=== PATIENT | female | born 1940 | race Caucasian/White ===

== ENCOUNTER → 2016-06-18 | Outpatient (CLI) | payer MEDICARE, BC ==
[~2016-06-18] MED LIST: ASPIRIN 81M81 MG/TA2 PO; EPA1000 MG PO; INFANTS AQU400 IU/ML; MULTIPLE VITAMI1 CAP PO; NITROSTAT0.4 MG/TAB SL; TOPROL XL 25MG25 MG PO; VITAMIN C500 MG PO; VITAMIN D5000 IU PO; VITAMIN E100 I3
== END ==
LOC: MC.RAD 10:55
DX: Z12.31 Encounter for screening mammogram for malignant neoplasm of breast (principal)

== ENCOUNTER 2017-06-19 14:40 | Emergency (ER) | payer MEDICARE, BC ==
[~2017-06-19] VITALS: Ht 165.1 cm; Wt 68.2 kg
[~2017-06-19 14:40] MED LIST changes: +NATURAL E400 IU PO; -VITAMIN E100 I3
[2017-06-19 14:46] VITALS: TEMP 101.2
[2017-06-19 15:32] LABS: BASO # 0.1 (0.0-0.2); BASO % 0.8 % (0.0-2.0); EOS % 0.1 % (0-4.0); GRAN # 6.6 (1.4-6.5); GRAN % 82.2 % (42.2-75.2); HEMATOCRIT 37.7 % (37.0-47.0); HEMOGLOBIN 12.7 g/dl (12.5-16.0); LYMPH # 0.7 (1.2-3.4); MEAN CELL VOLUME 94 fl (80.0-100.0); MEAN CORPUSCULAR HEMOGLOBIN 32 pg (27.0-31.0); MEAN CORPUSCULAR HGB CONC 34 g/dl (33.0-37.0); MEAN PLATELET VOLUME 9.2 fl (7.4-10.4); MONO # 0.6 (0.1-0.6); MONO % 7.5 % (1.7-9.3); PLATELET COUNT 243 K/mm3 (130-400); RED BLOOD COUNT 4.01 M/mm3 (4.10-5.30)
[2017-06-19 15:43] LABS: ALBUMIN 4.2 gm/dL (3.5-5.0); BILIRUBIN,TOTAL 0.3 mg/dL (0.0-1.0); C-REACTIVE PROTEIN 2.2 mg/dL (0.0-0.9); CALCIUM 9.1 mg/dL (8.4-10.2); CREATININE, serum 0.98 mg/dL (0.52-1.25); POTASSIUM 3.9 mmol/L (3.4-5.0); TOTAL PROTEIN 7.7 gm/dL (6.4-8.2)
[2017-06-19 16:21] LABS: COLLECTION METHOD CLEAN CATCH
[2017-06-19 16:36] LABS: BUDDING YEAST Present /hpf; MUCOUS Present /lpf; PH 6 (5-8); URINE APPEARANCE Cloudy; URINE BACTERIA Rare /hpf; URINE BILIRUBIN Negative (NEGATIVE); URINE BLOOD 2+ (NEGATIVE); URINE COLOR Yellow; URINE GLUCOSE Negative (NEGATIVE); URINE KETONE Negative (NEGATIVE); URINE LEUKOCYTE ESTERASE 3+ (NEGATIVE); URINE NITRATE Negative (NEGATIVE); URINE PROTEIN(semi-quant) Negative (NEGATIVE); URINE RBC 20-50 /hpf; URINE UROBILINOGEN Negative (NEGATIVE)
[2017-06-19] MEDS ORDERED: ULTRAM 50MG TAB50 MG PO (17:18)
[2017-06-19] MEDS ORDERED: CEFTIN500 MG PO (17:18)
[2017-06-19 17:32] VITALS: BP 123/74; PULSE 89
[2017-06-20] MEDS ORDERED: DOXYCYCLINE 10100 MG PO (05:52)
== END 2017-06-19 18:09 | disposition home or self-care (01) ==
LOC: COL.ER 14:40
PROVIDERS: Emergency Medicine
DX: S09.90XA Unspecified injury of head, initial encounter (principal); N39.0 Urinary tract infection, site not specified; Z79.4 Long term (current) use of insulin; Z90.710 Acquired absence of both cervix and uterus; Z90.49 Acquired absence of other specified parts of digestive tract; W01.10XA Fall on same level from slipping, tripping and stumbling with subsequent striking against unspecified object, initial encounter
CPT/HCPCS: J0696; J1885; J3010; J7030

== ENCOUNTER 2017-06-20 04:49 | Emergency (ER) | payer MEDICARE, BC ==
[~2017-06-20] VITALS: Ht 165.1 cm; Wt 68.2 kg
[~2017-06-20 04:49] MED LIST changes: +CEFTIN500 MG PO; +ULTRAM 50MG TAB50 MG PO
[2017-06-20 04:52] VITALS: TEMP 97.8
[2017-06-20 05:27] LABS: BASO # 0.1 (0.0-0.2); BASO % 0.9 % (0.0-2.0); EOS # 0.1 (0.0-0.7); EOS % 1.3 % (0-4.0); GRAN % 70.7 % (42.2-75.2); HEMATOCRIT 35.1 % (37.0-47.0); HEMOGLOBIN 11.8 g/dl (12.5-16.0); LYMPH # 1.3 (1.2-3.4); LYMPH % 14.8 % (20.0-51.0); MEAN CELL VOLUME 94 fl (80.0-100.0); MEAN CORPUSCULAR HEMOGLOBIN 31 pg (27.0-31.0); MEAN CORPUSCULAR HGB CONC 34 g/dl (33.0-37.0); MEAN PLATELET VOLUME 9.3 fl (7.4-10.4); MONO % 11.9 % (1.7-9.3); PLATELET COUNT 196 K/mm3 (130-400); RED BLOOD COUNT 3.75 M/mm3 (4.10-5.30); REDCELL DISTRIBUTION WIDTH-CV 14.1 % (11.5-14.5)
[2017-06-20 05:40] LABS: ALBUMIN 3.5 gm/dL (3.5-5.0); BILIRUBIN,TOTAL 0.3 mg/dL (0.0-1.0); C-REACTIVE PROTEIN 5.7 mg/dL (0.0-0.9); CALCIUM 8.7 mg/dL (8.4-10.2); CREATININE, serum 0.86 mg/dL (0.52-1.25); POTASSIUM 3.6 mmol/L (3.4-5.0); TOTAL PROTEIN 6.7 gm/dL (6.4-8.2)
[2017-06-20] MEDS ORDERED: DOXYCYCLINE 10100 MG PO (05:52)
[2017-06-20 06:26] VITALS: BP 108/60; PULSE 67
== END 2017-06-20 06:44 | disposition home or self-care (01) ==
LOC: COL.ER 04:49
PROVIDERS: Emergency Medicine
DX: J34.0 Abscess, furuncle and carbuncle of nose (principal); A46 Erysipelas
CPT/HCPCS: J7030

== ENCOUNTER → 2018-01-22 | Outpatient (CLI) | payer MEDICARE, BC ==
[~2018-01-22] MED LIST changes: +DOXYCYCLINE 10100 MG PO
== END ==
LOC: MC.RAD 10:07
DX: Z12.31 Encounter for screening mammogram for malignant neoplasm of breast (principal)

== ENCOUNTER → 2019-02-10 | Outpatient (CLI) | payer MEDICARE, BC | LOC: MC.RAD 11:02 | DX: Z12.31 Encounter for screening mammogram for malignant neoplasm of breast (principal) ==

== ENCOUNTER → 2019-08-24 | Outpatient (CLI) | payer MEDICARE, BC | LOC: COL.RAD 10:29 | DX: M48.061 Spinal stenosis, lumbar region without neurogenic claudication (principal); M48.07 Spinal stenosis, lumbosacral region; M43.16 Spondylolisthesis, lumbar region; M54.16 Radiculopathy, lumbar region; Z98.1 Arthrodesis status ==

== ENCOUNTER → 2019-09-02 | Outpatient (RCR) | payer MEDICARE, BC | END | disposition home or self-care (01) | LOC: WSPT → WSC 08-18 13:30 → WSPT 08-19 14:00 | DX: M48.061 Spinal stenosis, lumbar region without neurogenic claudication (principal); M43.16 Spondylolisthesis, lumbar region; M54.16 Radiculopathy, lumbar region; Z98.1 Arthrodesis status ==

== ENCOUNTER 2019-10-04 09:30 | Outpatient (RCR) | payer MEDICARE, BC | END 2019-12-06 | disposition home or self-care (01) | LOC: WSPT | DX: M43.16 Spondylolisthesis, lumbar region (principal); M54.16 Radiculopathy, lumbar region; M48.061 Spinal stenosis, lumbar region without neurogenic claudication; Z98.1 Arthrodesis status; M85.80 Other specified disorders of bone density and structure, unspecified site ==

== ENCOUNTER → 2020-02-24 | Outpatient (CLI) | payer MEDICARE, BC | LOC: COL.RAD 12:54 | DX: M43.16 Spondylolisthesis, lumbar region (principal); M48.061 Spinal stenosis, lumbar region without neurogenic claudication; M54.16 Radiculopathy, lumbar region; Z98.1 Arthrodesis status ==

== ENCOUNTER → 2020-02-28 | Outpatient (CLI) | payer MEDICARE, BC | LOC: MC.RAD 09:30 | DX: Z12.31 Encounter for screening mammogram for malignant neoplasm of breast (principal); N63.10 Unspecified lump in the right breast, unspecified quadrant ==

== ENCOUNTER 2020-03-03 13:00 | Outpatient (RCR) | payer MEDICARE, BC | END 2020-03-27 | disposition home or self-care (01) | LOC: WSPT | DX: M43.16 Spondylolisthesis, lumbar region (principal); M48.062 Spinal stenosis, lumbar region with neurogenic claudication; M54.16 Radiculopathy, lumbar region; Z98.1 Arthrodesis status ==

== ENCOUNTER → 2020-03-14 | Outpatient (CLI) | payer MEDICARE, BC | LOC: MC.RAD 07:51 | DX: N60.01 Solitary cyst of right breast (principal) ==

== ENCOUNTER → 2020-05-02 | Outpatient (CLI) | payer MEDICARE, BC | LOC: MHCPAIN 14:13 | DX: M47.817 Spondylosis without myelopathy or radiculopathy, lumbosacral region (principal); M96.1 Postlaminectomy syndrome, not elsewhere classified; M54.5 Low back pain; M53.3 Sacrococcygeal disorders, not elsewhere classified; G89.29 Other chronic pain | CPT/HCPCS: G0463 ==

== ENCOUNTER → 2020-05-04 | Outpatient (CLI) | payer MEDICARE, BC | LOC: MHCPAIN 10:49 | DX: M47.817 Spondylosis without myelopathy or radiculopathy, lumbosacral region (principal); M96.1 Postlaminectomy syndrome, not elsewhere classified; M54.16 Radiculopathy, lumbar region | CPT/HCPCS: J1100; Q9967 ==

== ENCOUNTER → 2020-05-16 | Outpatient (CLI) | payer MEDICARE, BC | LOC: MHCPAIN 11:04 | DX: M47.817 Spondylosis without myelopathy or radiculopathy, lumbosacral region (principal); M54.16 Radiculopathy, lumbar region; M96.1 Postlaminectomy syndrome, not elsewhere classified; M53.3 Sacrococcygeal disorders, not elsewhere classified | CPT/HCPCS: G0463 ==

== ENCOUNTER → 2020-05-30 | Outpatient (CLI) | payer MEDICARE, BC | LOC: MHCPAIN 10:52 | DX: M47.816 Spondylosis without myelopathy or radiculopathy, lumbar region (principal); M54.16 Radiculopathy, lumbar region; G89.29 Other chronic pain | CPT/HCPCS: G0463 ==

== ENCOUNTER → 2020-07-27 | Outpatient (CLI) | payer MEDICARE, BC | LOC: COL.RAD 07:48 | DX: Z01.812 Encounter for preprocedural laboratory examination (principal); M48.061 Spinal stenosis, lumbar region without neurogenic claudication; M72.6 Necrotizing fasciitis; Z98.1 Arthrodesis status | CPT/HCPCS: A9585 ==

== ENCOUNTER → 2020-08-25 | Outpatient (CLI) | payer MEDICARE, BC | LOC: COL.RAD 12:45 | DX: M48.062 Spinal stenosis, lumbar region with neurogenic claudication (principal); M54.16 Radiculopathy, lumbar region; M43.16 Spondylolisthesis, lumbar region; Z98.1 Arthrodesis status; Z98.890 Other specified postprocedural states ==

== ENCOUNTER 2021-03-09 14:25 | Emergency (ER) | payer MEDICARE, BC ==
[~2021-03-09] VITALS: Ht 165.1 cm; Wt 72.7 kg
[2021-03-09 14:34] VITALS: TEMP 98.1
[2021-03-09 15:27] LABS: BASO # 0.1 K/mm3 (0.0-0.2); BASO % 1.4 % (0.0-2.0); EOS # 0.1 K/mm3 (0.0-0.7); EOS % 1.6 % (0.0-4.0); GRAN # 2.8 K/mm3 (1.4-6.5); GRAN % 45.2 % (42.2-75.2); HEMATOCRIT 37.6 % (37.0-47.0); HEMOGLOBIN 12.4 g/dl (12.5-16.0); LYMPH # 2.7 K/mm3 (1.2-3.4); LYMPH % 43.2 % (20.0-51.0); MEAN CELL VOLUME 96 fl (80.0-100.0); MEAN CORPUSCULAR HEMOGLOBIN 32 pg (27-31); MEAN CORPUSCULAR HGB CONC 33 g/dl (33.0-37.0); MEAN PLATELET VOLUME 9.1 fl (7.4-10.4); MONO # 0.5 K/mm3 (0.1-0.6); MONO % 8.4 % (1.7-9.3); PLATELET COUNT 321 K/mm3 (130-400); RED BLOOD COUNT 3.92 M/mm3 (4.10-5.30)
[2021-03-09 15:35] LABS: ALANINE AMINOTRANSFERASE 19 U/L (0-55); ALBUMIN 3.9 gm/dL (3.4-4.8); ALKALINE PHOSPHATASE 86 U/L (40-150); ANION GAP 11 mmol/L (7-16); AST,SGOT 28 U/L (5-34); BILIRUBIN,TOTAL 0.2 mg/dL (0.2-1.2); BLOOD UREA NITROGEN 22 mg/dL (10-20); CARBON DIOXIDE 22 mmol/L (23-31); CHLORIDE 107 mmol/L (98-107); CREATININE, serum 0.86 mg/dL (0.57-1.11); GLUCOSE 91 mg/dL (70-99); POTASSIUM 4.3 mmol/L (3.5-4.5); SODIUM 140 mmol/L (136-145); TOTAL PROTEIN 7.3 gm/dL (6.2-8.1)
[2021-03-09 15:41] LABS: TROPONIN-I < 0.010 ng/mL (0.00-0.033)
[2021-03-09] MEDS ORDERED: ANTIVERT 25MG25 MG PO (16:24)
[2021-03-09 16:59] VITALS: BP 122/88; PULSE 52
== END 2021-03-09 16:59 | disposition home or self-care (01) ==
LOC: COL.ER 14:25
PROVIDERS: Emergency Medicine
DX: R42 Dizziness and giddiness (principal); G89.29 Other chronic pain; M54.9 Dorsalgia, unspecified; Z79.891 Long term (current) use of opiate analgesic
CPT/HCPCS: J7030

== ENCOUNTER → 2021-06-19 | Outpatient (CLI) | payer MEDICARE, BC ==
[~2021-06-19] MED LIST changes: +ANTIVERT 25MG25 MG PO
== END ==
LOC: MC.RAD 14:06
DX: Z12.31 Encounter for screening mammogram for malignant neoplasm of breast (principal)

== ENCOUNTER → 2022-06-21 | Outpatient (RCR) | payer MEDICARE, BC | END | disposition home or self-care (01) | LOC: PT.GENESIS | DX: M48.062 Spinal stenosis, lumbar region with neurogenic claudication (principal); M54.16 Radiculopathy, lumbar region; M53.3 Sacrococcygeal disorders, not elsewhere classified ==

== ENCOUNTER 2022-07-17 11:15 | Outpatient (RCR) | payer MEDICARE, BC | END 2022-07-21 | disposition home or self-care (01) | LOC: PT.GENESIS | DX: M48.062 Spinal stenosis, lumbar region with neurogenic claudication (principal); M54.16 Radiculopathy, lumbar region ==